=== PATIENT | male | born 1980 | race African-American/Black ===

== ENCOUNTER 2018-06-12 18:00 | Emergency (ER) | payer OTHER ==
[~2018-06-12] VITALS: Ht 172.7 cm; Wt 70.0 kg
[2018-06-12 18:05] VITALS: Ht 172.7 cm; Wt 70.0 kg
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
[2018-06-12 19:30] VITALS: BP 152/94; PULSE 80; RESP 18
== END 2018-06-12 19:30 | disposition home or self-care (01) ==
LOC: E/R 18:00
DX: J70.5 Respiratory conditions due to smoke inhalation (principal); R07.9 Chest pain, unspecified; R53.83 Other fatigue; I10 Essential (primary) hypertension; I25.10 Atherosclerotic heart disease of native coronary artery without angina pectoris
CPT/HCPCS: 93005